=== PATIENT | male | born 1980 | race African-American/Black ===

== ENCOUNTER 2023-02-19 21:25 | Emergency (ER) | payer OTHER, SELFPAY ==
--- NOTE | ~2023-02-19 | XR_ITS ---
EXAMINATION: XR hand RT min 3V INDICATION: Right hand pain TECHNIQUE: Three views of the right hand are obtained. COMPARISON: None available FINDINGS: There appears to be an oblique intra-articular fracture at the lateral base of the fifth mi ddle phalanx. There is soft tissue swelling of the fifth finger. No additional suspected fracture is identified. IMPRESSION: 1. Oblique intra-articular fracture at the lateral base of the fifth middle phalanx. Reviewed, dictated and finalized at location F. IMPRESSION: 1. Oblique intra-articular fracture at the lateral base of the fifth middle pha lanx.
[2023-02-19 21:34] VITALS: PULSE 76; RESP 15; TEMP 37.1; O2SAT 100
--- NOTE | 2023-02-19 23:22 | PC.NURSE ---
pt care and report given to jacob Encarnacion. all questions answered.
--- NOTE | 2023-02-20 00:02 | ED.UPPEXIN ---
HPI - Extremity Injury (Upper) General Chief Complaint: Extremity Injury, Upper Stated Complaint: hand injury Time Seen by Provider: 02/19/23 23:29 Source: patient Mode of arrival: ambulatory Limitations: no limitations History of Present Illness HPI narrative: Patient is a 42-year-old male who presents to the ED with complaints of right hand pain. Patient reports he tripped and fell down the stairs on Wednesday and tried to catch himself with his right hand. He sustained some abrasions to his fourth and fifth fingers. He has had pain to his thumb and fifth digit since then. He works at [employer] and states he had a difficult time at work today using his hands. He has been taking Tylenol for the pain. Denies any numbness or tingling. Related Data Home Medications Medication Instructions Recorded Confirmed amlodipine 10 mg tablet 10 mg PO DAILY 02/04/23 02/04/23 atorvastatin 20 mg tablet 20 mg PO DAILY 02/04/23 02/04/23 bupropion HCl 150 mg tablet,12 hr 150 mg PO BID 02/04/23 02/04/23 sustained-release carvedilol 25 mg tablet 25 mg PO Q12H 02/04/23 02/04/23 dapagliflozin propanediol 10 mg 10 mg PO DAILY 02/04/23 02/04/23 tablet (Farxiga) galcanezumab-gnlm 120 mg/mL 120 mg subcut MONTHLY 02/04/23 02/04/23 subcutaneous pen injector (Emgality Pen) hydrochlorothiazide 25 mg tablet 25 mg PO DAILY 02/04/23 02/04/23 lisinopril 40 mg tablet 40 mg PO DAILY 02/04/23 02/04/23 nifedipine 60 mg tablet,extended 60 mg PO DAILY 02/04/23 02/04/23 release omeprazole 40 mg capsule,delayed 40 mg PO DAILY 02/04/23 02/04/23 release tadalafil 20 mg tablet (Cialis) 20 mg PO DAILY PRN 02/04/23 02/04/23 Allergies Allergy/AdvReac Type Severity Reaction Status Date / Time No Known Allergies Allergy Unverified 02/04/23 13:29 Review of Systems Review of Systems: CONSTITUTIONAL: Denies fever, chills, or sweats. SKIN: See HPI. MUSCULOSKELETAL: See HPI. NEUROLOGIC: Denies headache, numbness, or weakness. All systems reviewed & are unremarkable except as noted in HPI and below PMFSH Social History Social History Smoking status: Current every day smoker Tobacco type: cigarettes Alcohol intake: current Substance use: unknown Lack of Transportation: No Lack of Food: Never True Current Housing: I Have Housing Concerned About Future Housing: No Difficulty Paying Gas/Electric Bills: No Difficulty Paying for Meds: No Currently Unemployed: No Difficulty w/ Childcare or Family Care: No Gender identity (if verbalized by the patient): Male Exam Narrative: GENERAL: Well appearing, well-nourished, non-toxic, in no acute distress. HEAD: Normocephalic, atraumatic. NECK: Supple. No adenopathy, no masses. RESPIRATORY: Airway patent, respirations nonlabored. CARDIOVASCULAR: Regular rate and rhythm without murmurs, rubs, or gallops. Radial pulses 2+ and equal bilaterally. MUSCULOSKELETAL: Moves all extremities. Strength/ROM intact without gross deformities. Limited range of motion of right fifth digit due to pain. Mild swelling noted to right fifth digit. Small abrasions noted over medial surface of right fifth PIP joint, lateral surface of fourth digit PIP joint. No significant swelling noted throughout remainder of fingers. No ecchymosis or erythema. Sensation intact. SKIN: Warm, dry, normal color. No rashes. NEURO: A&O X3. Speech clear. Cranial nerves II-XII grossly intact. Steady gait. No ataxic movements. PSYCHIATRIC: Appropriate mood and affect. Normal interaction. Course Vital Signs Vital signs: Vital Signs Temperature 98.7 F 02/19/23 21:34 Pulse Rate 76 02/19/23 21:34 Respiratory Rate 15 02/19/23 21:34 Pulse Oximetry 100 02/19/23 21:34 Oxygen Delivery Room Air 02/19/23 21:34 Temperature 98.7 F 02/19/23 21:34 Pulse Rate 76 02/19/23 21:34 Respiratory Rate 15 02/19/23 21:34 Pulse Oximetry 100
== END 2023-02-20 00:22 | disposition home or self-care (01) ==
PROVIDERS: Emergency Provider Physician Assistant; PCP Registered Nurse
DX: S62.626A Displaced fracture of middle phalanx of right little finger, initial encounter for closed fracture (principal); S60.419A Abrasion of unspecified finger, initial encounter; F17.210 Nicotine dependence, cigarettes, uncomplicated; W10.9XXA Fall (on) (from) unspecified stairs and steps, initial encounter
CPT/HCPCS: 29130; 73130; 99284

== ENCOUNTER 2023-04-19 08:45 | Outpatient (RCR) | payer OTHER, SELFPAY ==
--- NOTE | 2023-03-09 10:28 | OTOPEVAL1 ---
Assessment and note entered by Jesse Mart, YANG/Giovanny, CHT Evaluation Information Assessment Status Evaluation Diagnosis Sprain of IP joint of unspecified finger Onset 02/15/23 Subjective Information Patient tripped up the steps where he sustained a right small finger sprain. He was splinted in an aluminum splint and presents today to begin ROM. He works for [employer] and is on light duty. He is right handed. Reported Pain Level Pain Score 0: Self Report Additional Pain Score Comments No pain at rest. Pain increases to 3-4/10 with active ROM. Pain increases to 8/10 when bumping the finger. Assessment OT Clinical Summary Patient referred to OT with dx of small finger PIP joint sprain impacting his ability to flex the small finger around objects for functional gripping, carrying, and lifting. Skilled OT indicated for HEP instruction and progression, therapeutic exercise, edema mgmt, kirsty taping, use of modalities, and manual tx to facilitate optimal functional ROM and strength of the right hand. Plan of Care Interventions Therapeutic Exercise,Manual Therapy,Neuro Re- education,Therapeutic Activities,Hot Pack/Cold Pack,Paraffin OT Services Indicated Yes Treatment Frequency and 1x/week for 3 weeks Duration These treatments will address the objective and functional deficits as defined above. The patient will be advanced safely and appropriately in order for the patient to progress towards his/her prior level of function. Additional exercises will be introduced and as well as a comprehensive home exercise program upon discharge, if needed, ?to ensure carryover of functional gains achieved in the clinic. This treatment plan has been reviewed and agreement upon by the patient.
--- NOTE | 2023-03-24 07:44 | PCOTNOTE ---
Patient called & cancelled scheduled appointment this date due to having another appointment at the same time.
--- NOTE | 2023-04-05 09:58 | OTOPPROG ---
Assessment and note entered by Jesse Mart, YANG/Giovanny, CHT Progress Update 04/05/23 Diagnosis Sprain of IP joint of unspecified finger Onset 02/15/23 Subjective Information Patient tripped up the steps where he sustained a right small finger PIP joint sprain. It appears the radial collateral ligaments are affected. He works for [employer] and continues to be on light duty. He is right handed. Since beginning therapy, patient reports he is now able to close his hand. He reports return to light ADLs is going ok - laundry, dishes, etc. He reports continued limitations with any sort of gross gripping with that hand. Continues to report some residual stiffness and pain in the thumb IP joint also, which restricts a cylindrical grasp on items. Assessment OT Clinical Summary Patient referred to OT with dx of small finger PIP joint sprain impacting his ability to flex the small finger around objects for functional gripping, carrying, and lifting. He is making steady progress with improved ROM and reduced pain , which is allowing him to return to light ADL use . Continue skilled OT indicated for HEP instruction and progression, therapeutic exercise, edema mgmt, kirsty taping, use of modalities, and manual tx to facilitate optimal functional ROM and strength of the right hand. Plan of Care Interventions Therapeutic Exercise,Manual Therapy,Neuro Re- education,Therapeutic Activities,Hot Pack/Cold Pack,Paraffin OT Services Indicated Yes Treatment Frequency and 1x/week for 2 weeks Duration These treatments will address the objective and functional deficits as defined above. The patient will be advanced safely and appropriately in order for the patient to progress towards his/her prior level of function. Additional exercises will be introduced and as well as a comprehensive home exercise program upon discharge, if needed, ?to ensure carryover of functional gains achieved in the clinic. This treatment plan has been reviewed and agreement upon by the patient.
--- NOTE | 2023-04-19 09:25 | OTOPDC ---
Assessment and note entered by Jesse Mart, YANG/Giovanny, CHT Discharge Summary 04/19/23 Diagnosis Sprain of IP joint of unspecified finger Onset 02/15/23 Subjective Information Patient tripped up the steps where he sustained a right small finger PIP joint sprain. Since beginning therapy, patient reports good progress. Able to flower arranger items with some force without pain. Able to filler picker objects with a cylindrical grasp now. He reports no functional limitations, just reports some residual weakness. When making a fist, the small finger now touches the palm. With a hook fist, the small finger has a 2 cm gap between the finger tip and the DPC. Passively he is able to achieve a 1 cm gap. 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 Reported Pain Level Pain Score 0: Self Report Additional Pain Score Comments No pain at rest. At worst the pain gets up to 3/ 10 when he accidently bumps the finger. No pain with ADLs. Assessment OT Clinical Summary Patient referred to OT with dx of small finger PIP joint sprain. He has made steady progress with therapy. ROM of the finger is WFL. He is having significantly less pain with use. He is completing ROM and strengthening HEP. Reporting no functional limitations at this time. Reviewed HEP today and educated on continuing to work out any residual stiffness and weakness. Discharging today with patient independent with HEP.
== END 2023-04-19 09:52 | disposition home or self-care (01) ==
LOC: ANHOT 08:45
PROVIDERS: PCP Registered Nurse; Visit Provider Plastic Surgery
DX: S63.639D Sprain of interphalangeal joint of unspecified finger, subsequent encounter (principal)
CPT/HCPCS: 97018; 97110; 97140; 97165; 99199

== ENCOUNTER 2023-05-05 13:47 | Outpatient (CLI) | payer OTHER, SELFPAY ==
--- NOTE | ~2023-05-05 | XR_ITS ---
EXAMINATION: XR hand RT min 3V DATE: 05/05/2023 15:19 INDICATION: Right hand fifth digit fracture. Follow-up. TECHNIQUE: 3 views of right hand were obtained. COMPARISON: Right hand radiographs 02/19/2023 FINDINGS: Bone alignment is normal. Again seen is an avulsion fracture of radiopalmar base of fifth m iddle phalanx. 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 IMPRESSION: 1. Avulsion fracture of base of fifth middle phalanx again seen. Reviewed, dictated and finalized at location E. [employer]
== END 2023-05-05 13:48 | disposition home or self-care (01) ==
LOC: ANHIMG 13:50
PROVIDERS: PCP Registered Nurse; Visit Provider Physician Assistant Surgical
DX: S62.622A Displaced fracture of middle phalanx of right middle finger, initial encounter for closed fracture (principal); X58.XXXA Exposure to other specified factors, initial encounter
CPT/HCPCS: 73130